=== PATIENT | male | born 1960 | race African-American/Black ===

== ENCOUNTER 2021-09-22 08:58 | Emergency (ER) | payer MEDICAID ==
[~2021-09-22] VITALS: Ht 180.3 cm; Wt 85.0 kg
[2021-09-22] MEDS ORDERED: DEXAMETHASONE 4 MG TABLET PO ONE (09:30)
[2021-09-22] MEDS ORDERED: LIDOCAINE (700MG/PATCH) PATCH. TD ONE (09:30)
[2021-09-22] MEDS ORDERED: tiZANidine 4 MG TABLET. PO ONE (09:45)
--- NOTE | 2021-09-22 09:47 | PHYS DOC ---
Past Medical History Additional Past Medical Histor: NEUROPATHY Past Surgical History: No Surgical History General Adult EDM: Chief Complaint: BACK PAIN OR INJURY HPI: HPI: Patient is a 61 year old male who presents with here for upper back pain with muscle tightness, mid back pain and lower back pain with sharp shooting pains that goes down the left leg. Patient states that he passes out a lot and does not know why. He states is been going on for the last couple of months. He states he has been seen for this before. He cannot tell me anything about his past medical history or what medications he is on. He states he has home health. Daughter is in the room but also a very poor historian. She stated 2 days ago he was walking into her kitchen and fell backward. Daughter stated he did not blackout. Patient and daughter are unable to tell me if he struck his head or if he has a seizure condition. Patient states he has been out of his gabapentin and trazodone for the last 2 weeks. Patient states he goes to [facility] but the timbo he is to see is not there any longer. He states that he gets his medications from [facility]. Patient rates his pain at a 10 out of 10 at this time. Review of Systems: Review of Systems: Constitutional: Denies fever or chills. [] Eyes: Denies change in visual acuity. [] HENT: Denies nasal congestion or sore throat. [] Respiratory: Denies cough or shortness of breath. [] Cardiovascular: Denies chest pain or edema. [] GI: Denies abdominal pain, nausea, vomiting, bloody stools or diarrhea. [] : Denies dysuria. [] Musculoskeletal: + Cervical, thoracic, +lumbar back pain or denies joint pain. +Sharp shooting left leg pain [] Integument: Denies rash. [] Neurologic: Denies headache, focal weakness or sensory changes. + Syncopal episodes [] Endocrine: Denies polyuria or polydipsia. [] Lymphatic: Denies swollen glands. [] Psychiatric: Denies depression or anxiety. [] Heart Score: C/O Chest Pain: No Risk Factors: Risk Factors: DM, Current or recent (<one month) smoker, HTN, HLP, family history of CAD, obesity. Risk Scores: Score 0 - 3: 2.5% MACE over next 6 weeks - Discharge Home Score 4 - 6: 20.3% MACE over next 6 weeks - Admit for Clinical Observation Score 7 - 10: 72.7% MACE over next 6 weeks - Early Invasive Strategies Current Medications: Current Medications Medications (Trade) Dose Ordered Sig/Tegan Start Time Stop Time Status Last Admin Dose Admin Dexamethasone (Decadron) 10 mg 1X ONCE 09/22/21 09:30 5 09:31 DC Lidocaine (Lidoderm) 1 patch 1X ONCE 09/22/21 09:30 09/22/21 09:31 DC Allergies: Allergies: Allergies Coded Allergies Type Severity Reaction Last Updated Verified No Known Drug Allergies 09/22/21 No Physical Exam: PE: Constitutional: Well developed, well nourished, no acute distress, non-toxic appearance. [] HENT: Normocephalic, atraumatic, bilateral external ears normal, oropharynx moist, no oral exudates, nose normal. [] Eyes: PERRLA, EOMI, conjunctiva normal, no discharge. [] Neck: Normal range of motion, no tenderness, supple, no stridor. [] Cardiovascular:Heart rate regular rhythm, no murmur [] Lungs & Thorax: Bilateral breath sounds clear to auscultation [] Abdomen: Bowel sounds normal, soft, no tenderness, no masses, no pulsatile masses. [] Skin: Warm, dry, no erythema, no rash. [] Back: Thoracic and lumbar tenderness, no CVA tenderness. [] Extremities: No tenderness, no cyanosis, no clubbing, ROM intact, no edema. [] Neurologic: Alert and oriented X 3, normal motor function, normal sensory func tion, no focal deficits noted. Tremors [] Psychologic: Affect normal, judgement normal, mood normal. [] Current Patient Data: Vital Signs: Vital Signs Date Time Temp Pulse Resp B/P (MAP) Pulse Ox O2 Delivery O2 Flow Rate FiO2 09/22/21 09:07 97.0 89 20 176/100 (125) 100 97.0 EKG: EK and read by Dr. Narayanan is a sinus rhythm without STEMI. Radiology/Procedures: Radiology/Procedures: [] Impression: [facility] [address] [place], [place] [id number] IMAGING REPORT Signed PATIENT: SUSAN PAGE ACCOUNT: [id number] : 1960 LOCATION: ER AGE: 61 SEX: M EXAM STATUS: REG ER ORD. PHYSICIAN: DAYAMI ORTIZ APRN REASON: FALL, PAIN, SYNCOPE PROCEDURE: CT THORACIC SPINE WO CONTRAST PQRS Compliance Statement: One or more of the following individualized dose reduction techniques were utilized for this examination: 1. Automated exposure control 2. Adjustment of the mA and/or kV according to patient size 3. Use of iterative reconstruction technique CT head and cervical spine without contrast 09/22/2021 9:51 AM INDICATION: Fall, pain and syncope COMPARISON: None available TECHNIQUE: Multiple axial CT images of the head were obtained from skull base through the vertex without intravenous contrast. Multiple axial CT images of the cervical, thoracic and lumbar spine were obtained without intravenous contrast. Coronal and sagittal reformats are provided. FINDINGS: Head: Ventricles, sulci and basal cisterns are within normal limits. There is no hydrocephalus. Beaulieu-white matter differentiation is normal. There is no acute intracranial hemorrhage. There is no mass, mass effect or midline shift. Posterior fossa is normal in appearance. Visualized portions of the orbits are normal. Paranasal sinuses are well aerated. Mastoid air cells are well aerated. Scalp and calvaria are normal. Cervical spine: Alignment of the cervical spine is normal. Skull base is intact. Craniocervical junction is normal in appearance. Atlantoaxial articulation is normal. Vertebral body heights are maintained without evidence for acute fracture. Mild disc height loss at and C6-C7 and C7-T1. Moderate anterior marginal osteophytosis identified at C5-C6 and C6-C7 without acute fracture. At C2-C3, there is a posterior disc osteophyte complex asymmetric to the right. Moderate to severe right and moderate left facet arthropathy. Moderate right and mild left neuroforaminal stenosis. Mild spinal canal stenosis. At C3-C4, there is a disc bulge asymmetric to the left. Moderate severe facet arthropathy. Mild uncovertebral joint disease. Moderate bilateral neuroforaminal stenosis. Mild spinal canal stenosis. At C4-C5, there is a posterior disc osteophyte complex. Severe right and moderate left facet arthropathy. Moderate uncovertebral joint disease. Moderate to severe right and mild left neuroforaminal stenosis. No spinal canal stenosis. At C6 5 C6, there is a posterior disc osteophyte complex. Moderate uncovertebral joint disease. Moderate severe bilateral facet arthropathy, right greater than left. Moderate neuroforaminal stenosis, left greater than right. Mild spinal canal stenosis. At C6-C7, there is a posterior disc osteophyte complex. Mild to moderate facet arthropathy. Moderate to advanced right and moderate left uncovertebral joint disease. Moderate severe right and moderate left neuroforaminal stenosis. Mild spinal canal stenosis. There is no prevertebral soft tissue swelling. Thyroid gland is normal in appearance. Visualized portions of the lung apices are normal without evidence for suspicious pulmonary nodule or infiltrate. Thoracic spine: Alinement of thoracic spine is normal. Vertebral body heights are maintained. Acute fractures identified. Disc heights are maintained. Moderate anterior marginal osteophytosis. Bridging anterior marginal osteophytosis identified with clefts noted at T6-T7 and T11-T12. No acute fracture. No osseous neuroforaminal or spinal canal stenosis. Lungs are clear. Mediastinum is normal in appearance. Thoracic aorta is normal in caliber. Adrenal glands are normal. Lumbar spine: Alignment of the lumbar spine is normal. Vertebral body heights are maintained. Acute fractures identified. Severe anterior marginal osteophytosis identified at L2-L3 and moderate anterior marginal osteophytosis at L3-L4 and L4-L5. Disc heights are maintained. 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 Abdominal aorta is normal in caliber with mode rate calcified atheromatous plaque. No suspicious intracranial abnormality is identified. Visualized portions of the sacrum appear intact. Sacroiliac joints are well aligned. Transverse processes are intact. At L2-L3, there is a circumferential disc bulge with moderate facet arthropathy and ligamentum flavum infolding resulting in moderate bilateral neuroforaminal stenosis and moderate severe spinal canal stenosis. At L3-L4: There is a circumferential disc bulge with moderate facet arthropathy ligamentum flavum infolding. Findings result in moderate bilateral neuroforaminal stenosis and moderate spinal canal stenosis. At L4-L5, there is a disc bulge asymmetric to the left with left far lateral disc protrusion. Severe left and moderate facet arthropathy ligamentum flavum infolding. Severe left and moderate right neuroforaminal stenosis. Moderate spinal canal stenosis. L5-S1: There is a disc bulge asymmetric to the right. Severe right and moderate left facet arthropathy. Moderate severe bilateral neuroforaminal stenosis. Mild spinal canal stenosis. IMPRESSION: 1. No acute intracranial hemorrhage. 2. No acute fracture or malalignment of the cervical spine. Mild to moderate cervical spondylosis. 3. No acute fracture or malalignment of the thoracic spine. 4. 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 No acute fracture of the lumbar spine. Electronically signed by: Lucio Corley MD (09/22/2021 10:35 AM) [id number] DICTATED and SIGNED BY: LUCIO CORLEY MD DATE: 09/22/21 1022 Course & Med Decision Making: Course & Med Decision Making Pertinent Labs and Imaging studies reviewed. (See chart for details) See HPI. I had the nurse RN Tanmay called [facility] pharmacy and he spoke to the pharmacy of which they state that patient is on amlodipine of which she picked up in May, Zanaflex of which she picked up last on 01 August and ibuprofen 600 mg. They state that they have no prescriptions ever given for gabapentin or trazodone for the patient. He has tremors just sitting still and with movement. States he has had those chronically. He states he does have neuropathy but cannot tell me why. Full range of motion of his legs and all of his extremities with equal strength. Denies any dizziness, chest pain, shortness of breath, new focal weakness or numbness and tingling, recent illness, vision change, headache, abdominal pain, nausea, vomiting, diarrhea. Vital signs are within normal limits although he is hypertensive. Speaks in full clear sentences. Skin pink warm and dry. Alert and oriented x4. No extremity edema. Lungs are clear are clear to auscultation in all lobes. Patient is positive for PCP. CT shows no acute findings. I gave patient a dose of his Norvasc 5 mg because he is hypertensive and he states he has not taken any for 2 weeks. Patient will not be getting any gabapentin or narcotics here today due to his PCP drug use. He needs to follow-up with his primary care provider. He is given a lidocaine patch and a Zanaflex in the ED. Troponin is negative. EKG shows no acute findings and is a sinus rhythm without STEMI. I went over history, results, and care plan with Dr Narayanan and he states patient is ok to go home. Violeta Disclaimer: Violeta Disclaimer: This electronic medical record was generated, in whole or in part, using a voice recognition dictation system. Departure Departure Impression: Primary Impression: Back pain Qualified Codes: M54.42 - Lumbago with sciatica, left side Additional Impressions: Sciatica Qualified Codes: M54.32 - Sciatica, left side Frequent falls PCP abuse Disposition: HOME / SELF CARE / HOMELESS Condition: STABLE Referrals: UNKNOWN PCP NAME (PCP) Patient Instructions: Alcohol and Drug Addiction, Finding Treatment, Back Pain, Adult, Fall Prevention and Home Safety, Sciatica with Rehab-[facility] Additional Instructions: Stop using drugs. Follow-up with your primary care provider soon as possible. Take medication as prescribed and with food. Drink plenty of fluids to stay hydrated. If you have another syncopal episode you should return to the emergency room. With the diclofenac that I am given you do not take other NSAIDs with this. Scripts Diclofenac Sodium (DICLOFENAC SODIUM) 50 Mg Tablet.dr 1 TAB PO BID for 10 Days, #20 TAB 1 Refill Prov: DAYAMI ORTIZ APRN 09/22/21 Tizanidine Hcl (ZANAFLEX) 4 Mg Tablet 1 TAB PO TID for 10 Days, #30 TAB 0 Refills Prov: DAYAMI ORTIZ APRN 09/22/21 Amlodipine Besylate (AMLODIPINE BESYLATE) 5 Mg Tablet 5 MG PO DAILY, #30 TAB Prov: DAYAMI ORTIZ APRN 09/22/21 DAYAMI ORTIZ APRN September 22, 2021 09:47
[2021-09-22 10:00] LABS: BASO % 1 % (0-3); EOS # 0.1 x10^3/uL (0.0-0.7); EOS % 2 % (0-3); HEMATOCRIT 27.1 % (39.0-53.0); HEMOGLOBIN 8.2 g/dL (13.0-17.5); LYMPH # 2.2 x10^3/uL (1.0-4.8); LYMPH % 30 % (24-48); MEAN CORPUSCULAR HEMOGLOBIN 24 pg (25-35); MEAN CORPUSCULAR HGB CONC 30 g/dL (31-37); MEAN CORPUSCULAR VOLUME 79 fL (79-100); MONO # 0.5 x10^3/uL (0.0-1.1); MONO % 7 % (0-9); NEUT # 4.3 x10^3/uL (1.8-7.7); NEUT % 60 % (31-73); PLATELET COUNT 98 x10^3/uL (140-400); RED BLOOD COUNT 3.42 x10^6/uL (4.30-5.70); RED CELL DISTRIBUTION WIDTH 23.5 % (11.5-14.5); WHITE BLOOD COUNT 7.2 x10^3/uL (4.0-11.0)
[2021-09-22 10:11] LABS: BARBITURATES NEG (NEG); BENZODIAZEPINES NEG (NEG); CANNABINOIDS NEG (NEG); COCAINE NEG (NEG); METHADONE NEG (NEG); OPIATES NEG (NEG); PHENCYCLIDINE POS (NEG)
[2021-09-22 10:12] LABS: AMPHETAMINE/METHAMPHETAMINE NEG (NEG); BILIRUBIN,URINE NEGATIVE (NEG); CALCIUM 9.2 mg/dL (8.5-10.1); CLARITY,URINE CLEAR; COLOR,URINE YELLOW; CREATININE 1.3 mg/dL (0.7-1.3); GFR 67.7; NITRITE,URINE NEGATIVE (NEG); POTASSIUM 3.8 mmol/L (3.5-5.1); PROTEIN,URINE 100 mg/dL (NEG-TRACE); UROBILINOGEN,URINE 0.2 mg/dL (0.2 mg/dL)
[2021-09-22 10:14] LABS: BACTERIA,URINE FEW /HPF (0-FEW); RBC,URINE 0 /HPF (0-2)
[2021-09-22 10:18] LABS: ALBUMIN/GLOBULIN RATIO 0.8 (1.0-1.7); TOTAL BILIRUBIN 0.5 mg/dL (0.2-1.0); TOTAL PROTEIN 8.8 g/dL (6.4-8.2)
--- NOTE | 2021-09-22 10:38 | RAD ---
PQRS Compliance Statement: One or more of the following individualized dose reduction techniques were utilized for this examinat ion: 1. Automated exposure control 2. Adjustment of the mA and/or kV according to patient size 3. Use of iterative reconstruction technique CT head and cervical spine without contrast 09/22/2021 9:51 AM INDICATION: Fall, pain and syncope COMPARISON: None available TECHNIQUE: Multiple axial CT images of the head were obtained from skull base through the vertex with out intravenous contrast. Multiple axial CT images of the cervical, thoracic and lumbar spine were ob tained without intravenous contrast. Coronal and sagittal reformats are provided. FINDINGS: Head: Ventricles, sulci and basal cisterns are within normal limits. There is no hydrocephalus. Beaulieu-white matter differentiation is normal. There is no acute intracranial hemorrhage. There is no mass, mass e ffect or midline shift. Posterior fossa is normal in appearance. Visualized portions of the orbits are normal. Paranasal sinuses are well aerated. Mastoid air cells a re well aerated. Scalp and calvaria are normal. Cervical spine: Alignment of the cervical spine is normal. Skull base is intact. Craniocervical junction is normal in appearance. Atlantoaxial articulation is normal. Vertebral body heights are maintained without evidence for acute fracture. Mild disc height loss at and C6-C7 and C7-T1. Moderate anterior marginal osteophytosis identified at C5-C6 and C6-C7 without acute fracture. At C2-C3, there is a posterior disc osteophyte complex asymmetric to the right. Moderate to severe ri ght and moderate left facet arthropathy. Moderate right and mild left neuroforaminal stenosis. Mild s shaq canal stenosis. At C3-C4, there is a disc bulge asymmetric to the left. Moderate severe facet arthropathy. Mild uncov ertebral joint disease. Moderate bilateral neuroforaminal stenosis. Mild spinal canal stenosis. At C4-C5, there is a posterior disc osteophyte complex. Severe right and moderate left facet arthropa thy. Moderate uncovertebral joint disease. Moderate to severe right and mild left neuroforaminal sten osis. No spinal canal stenosis. At C6 5 C6, there is a posterior disc osteophyte complex. Moderate uncovertebral joint disease. Moder ate severe bilateral facet arthropathy, right greater than left. Moderate neuroforaminal stenosis, le ft greater than right. Mild spinal canal stenosis. At C6-C7, there is a posterior disc osteophyte complex. Mild to moderate facet arthropathy. Moderate to advanced right and moderate left uncovertebral joint disease. Moderate severe right and moderate l eft neuroforaminal stenosis. Mild spinal canal stenosis. There is no prevertebral soft tissue swelling. Thyroid gland is normal in appearance. Visualized port ions of the lung apices are normal without evidence for suspicious pulmonary nodule or infiltrate. Thoracic spine: Alinement of thoracic spine is normal. Vertebral body heights are maintained. Acute fractures identif ied. Disc heights are maintained. Moderate anterior marginal osteophytosis. Bridging anterior margina l osteophytosis identified with clefts noted at T6-T7 and T11-T12. No acute fracture. No osseous neur oforaminal or spinal canal stenosis. Lungs are clear. Mediastinum is normal in appearance. Thoracic a susu is normal in caliber. Adrenal glands are normal. Lumbar spine: Alignment of the lumbar spine is normal. Vertebral body heights are maintained. Acute fractures ident ified. Severe anterior marginal osteophytosis identified at L2-L3 and moderate anterior marginal oste ophytosis at L3-L4 and L4-L5. Disc heights are maintained. There is congenital narrowing of the spina l canal secondary to shortened pedicles. Abdominal aorta is normal in caliber with moderate calcified atheromatous plaque. No suspicious intracranial abnormality is identified. Visualized portions of th e sacrum appear intact. Sacroiliac joints are well aligned. Transverse processes are intact. At L2-L3, there is a circumferential disc bulge with moderate facet arthropathy and ligamentum flavum infolding resulting in moderate bilateral neuroforaminal stenosis and moderate severe spinal canal s tenosis. At L3-L4: There is a circumferential disc bulge with moderate facet arthropathy ligamentum flavum inf olding. Findings result in moderate bilateral neuroforaminal stenosis and moderate spinal canal steno sis. At L4-L5, there is a disc bulge asymmetric to the left with left far lateral disc protrusion. Severe left and moderate facet arthropathy ligamentum flavum infolding. Severe left and moderate right neuro foraminal stenosis. Moderate spinal canal stenosis. L5-S1: There is a disc bulge asymmetric to the right. Severe right and moderate left facet arthropath y. Moderate severe bilateral neuroforaminal stenosis. Mild spinal canal stenosis. IMPRESSION: 1. No acute intracranial hemorrhage. 2. No acute fracture or malalignment of the cervical spine. Mild to moderate cervical spondylosis. 3. No acute fracture or malalignment of the thoracic spine. 4. Mild to moderate lumbar spondylosis with congenital narrowing of the spinal canal secondary to laura rtened pedicles. No acute fracture of the lumbar spine. Electronically signed by: Denae Nieves MD (09/22/2021 10:35 AM) [id number]
[2021-09-22] MEDS ORDERED: TIZA4TAB8 PO (11:10)
[2021-09-22] MEDS ORDERED: AMLO-186 PO (11:10)
[2021-09-22] MEDS ORDERED: DICL50TA4 PO (11:10)
[2021-09-22 11:19] VITALS: BP 113/75
[2021-09-22 11:24] LABS: PLT ESTIMATE DECREASED (ADEQUATE)
[2021-09-22 11:25] LABS: ANISOCYTOSIS SLIGHT
--- NOTE | 2021-09-22 16:37 | EKG ---
[facility] [address] [place] [address] Test Date: 2021-09-22 Test Time: 10:50:15 Pat Name: SUSAN PAGE Department: Room: Gender: M Home Care Associate: : 1960 Requested By: DAYAMI ORTIZ Order Number: [id number] Reading MD: Marck Funes Measurements Intervals Ramona Rate: 67 P: 40 MO: 136 QRS: 34 QRSD: 80 T: 42 QT: 382 QTc: 406 Interpretive Statements SINUS RHYTHM Electronically Signed On 09-23-2021 14:47:03 CDT by Marck Funes
== END 2021-09-22 11:42 | disposition home or self-care (01) ==
LOC: ER 08:58
DX: M54.42 Lumbago with sciatica, left side (principal); M54.6 Pain in thoracic spine; M54.2 Cervicalgia; R51.9 Headache, unspecified
CPT/HCPCS: 36415; 70450; 72125; 72128; 72131; 80053; 80307; 81001; 84484; 85025; 87086; 93005; 99285; G0480

== ENCOUNTER 2021-09-25 17:25 | Emergency (ER) | payer MEDICAID ==
[~2021-09-25] VITALS: Ht 180.3 cm; Wt 88.0 kg
[~2021-09-25 17:25] MED LIST: AMLO-186 PO; DICL50TA4 PO; TIZA4TAB8 PO
[2021-09-25 17:32] VITALS: BP 113/67
[2021-09-25] MEDS ORDERED: PRED50TA PO (17:49)
[2021-09-25] MEDS ORDERED: HYDR-2761 PO (17:49)
--- NOTE | 2021-09-25 17:50 | PHYS DOC ---
Past Medical History Past Medical History: Hypertension, Sciatica Additional Past Medical Histor: NEUROPATHY Past Surgical History: No Surgical History General Adult EDM: Chief Complaint: BACK PAIN OR INJURY HPI: HPI: Patient is a 61 year old male patient with history of sciatica, hypertension, presenting to the ED today complaining of 10 out of 10 left low back pain radiating to the left lower extremity, symptoms of been going on for couple days. Patient denies any trauma denies any loss of bowel/bladder function. Describes the pain as sharp and constant worse on weightbearing. Reports he was seen in the ED 3 days ago but the medicine he was given is not touching the pain. Review of Systems: Review of Systems: Constitutional: Denies fever or chills. [] GI: Denies abdominal pain, nausea, vomiting, bloody stools or diarrhea. [] : Denies dysuria. [] Musculoskeletal: Reports left low back pain radiating to the left lower extremity Integument: Denies rash. [] Neurologic: Denies headache, focal weakness or sensory changes. [] Psychiatric: Denies depression or anxiety. [] Heart Score: C/O Chest Pain: N/A Risk Factors: Risk Factors: DM, Current or recent (<one month) smoker, HTN, HLP, family history of CAD, obesity. Risk Scores: Score 0 - 3: 2.5% MACE over next 6 weeks - Discharge Home Score 4 - 6: 20.3% MACE over next 6 weeks - Admit for Clinical Observation Score 7 - 10: 72.7% MACE over next 6 weeks - Early Invasive Strategies Current Medications: Current Medications Medications (Trade) Dose Ordered Sig/[facility] Start Time Stop Time Status Last Admin Dose Admin Dexamethasone Sodium Phosphate (Decadron) 10 mg 1X ONCE 09/25/21 17:45 09/25/21 17:46 UNV Diazepam (Valium) 5 mg 1X ONCE 09/25/21 17:45 09/25/21 17:46 UNV Morphine Sulfate (Morphine Sulfate) 4 mg 1X ONCE 09/25/21 17:45 09/25/21 17:46 UNV Allergies: Allergies: Allergies Coded Allergies Type Severity Reaction Last Updated Verified No Known Drug Allergies 09/22/21 No Physical Exam: PE: Constitutional: Well developed, well nourished, no acute distress, non-toxic appearance. [][] Skin: Warm, dry, no erythema, no rash. [] Back: Moderate left SI joint tenderness to the left, no CVA tenderness. Positive straight leg raise at approximately 40 degrees Extremities: No tenderness, no cyanosis, no clubbing, ROM intact, no edema. [] Neurologic: Alert and oriented X 3, normal motor function, normal sensory function, no focal deficits noted. [] Psychologic: Affect normal, judgement normal, mood normal. [] Current Patient Data: Vital Signs: Vital Signs Date Time Temp Pulse Resp B/P (MAP) Pulse Ox O2 Delivery O2 Flow Rate FiO2 09/25/21 17:32 97.7 63 20 113/67 (82) 98 Room Air 97.7 EKG: EKG: [] Radiology/Procedures: Radiology/Procedures: [] Course & Med Decision Making: Course & Med Decision Making Pertinent Labs and Imaging studies reviewed. (See chart for details) This is a 61-year-old male patient presented to the ED today with exacerbation of sciatica pain. Patient has no injury, no cauda equina syndrome symptoms. Was given pain medicine in the ED. Discharge to home with pain medicine. Follow-up with PCP in the course of this week Violeta Disclaimer: Violeta Disclaimer: This electronic medical record was generated, in whole or in part, using a voice recognition dictation system. Departure Departure Impression: Primary Impression: Sciatica Qualified Codes: M54.32 - Sciatica, left side Disposition: 01 HOME / SELF CARE / HOMELESS Condition: STABLE Referrals: UNKNOWN PCP NAME (PCP) follow up with your doctor in the course of this week Patient Instructions: Sciatica with Rehab-[facility] Additional Instructions: You were evaluated in the emergency room for low back pain with sciatica. Please take the prescribed medications as ordered. Follow-up with your own doctor in the course of this week Scripts Prednisone (PREDNISONE) 50 Mg Tablet 1 TAB PO DAILY, #5 TAB Prov: TAMARA JUNIOR SOLUTION ENGINEER 09/25/21 Hydrocodone Bit/Acetaminophen (HYDROCODONE-APAP 5-325 ) 1 Tab Tablet 1 TAB PO PRN Q6HRS PRN for PAIN, #10 TAB 0 Refills Prov: VERNONTAMARA Christie SOLUTION ENGINEER 09/25/21 TAMARA JUNIOR ARMANDO September 25, 2021 17:50
[2021-09-25] MEDS ORDERED: MORPHINE SULFATE 4 MG/ML INJ. IM ONE (18:15)
[2021-09-25] MEDS ORDERED: diazePAM 5 MG TABLET PO ONE (18:15)
[2021-09-25] MEDS ORDERED: DEXAMETHASONE SOD PHOS 20 MG/5 ML VIAL. IM ONE (18:15)
== END 2021-09-25 18:22 | disposition home or self-care (01) ==
LOC: ER 17:25
DX: M54.42 Lumbago with sciatica, left side (principal); I10 Essential (primary) hypertension
CPT/HCPCS: 96372; 99284; J1100; J2270